=== PATIENT | male | born 1965 ===

== ENCOUNTER → 2019-09-03 | Outpatient (CLI) | payer OTHER ==
[~2019-09-03] MED LIST: ALLO300T PO; CELE100C PO; FEXO60TA25 PO; GABA800T PO; IBUP200C9 PO
--- NOTE | 2019-09-03 08:44 | PAIN ---
DATE OF SERVICE: 09/03/2019 INITIAL CONSULTATION FOR PAIN CLINIC CHIEF COMPLAINT: Low back and left lower extremity pain. HISTORY OF PRESENT ILLNESS: This is a 53-year-old male who presents with history of pain in the low back and the left lower extremity for about 6 months or so. The patient reports it has been bothering him for many years, but much worse over the past 6 months, low back, left lower extremity radiating to posterior gluteus, lateral thigh, lateral anterior thigh, medial thigh and posterior calf. The patient reports it is radiation, comes and goes, but the weakness is noticeable in his left leg, which is much more pronounced with fatigue and walking. The patient reports it is worse with standing and changing positions, awakens him from sleep at least 5 times a night, can affect his bowel or bladder control, but no loss of continence, but does affect his ability to walk. He is limping favoring his left lower extremity. The patient has had physical therapy, exercise, counseling, trigger point dry needling, all which are helpful, but only temporarily. The patient has tried Celebrex as well as Neurontin, Celebrex does decrease the pain by about 20%. The Neurontin has not been effective by his report. The patient did have MRI scan of the lumbar spine showing L4-L5 disk desiccation, severe facet arthropathy with circumferential disk bulge, flattening anterior thecal sac with mild bilateral neural foraminal narrowing. L5-S1 shows similar findings as well. The patient rates his disability rating from 0-10, 10 being the worst, is a 7 with family home responsibilities, 6 with recreation and social activity, occupation and sexual behavior, self-care and life-support activities. PAST MEDICAL HISTORY: Significant for hearing loss bilaterally, history of arthritis. PREVIOUS SURGERY: Includes a right knee scope, anterior cervical diskectomy and fusion in 2004, shoulder surgery bilaterally, tonsillectomy and pinning of his right lower finger from injury. CURRENT MEDICATIONS: Include allopurinol, Neurontin, Celebrex, glucosamine/chondroitin and Anabel. ALLERGIES: The patient has no known drug allergies. FAMILY HISTORY: Significant for no major medical problems or conditions that he lists. SOCIAL HISTORY: The patient does not drink alcohol, does not smoke, does not use any illegal, illicit or recreational drugs. He is single, is currently active and is incarcerated in the custody in [place], [place]. REVIEW OF SYSTEMS: The patient's review of systems is positive for those items mentioned in history of present illness. All systems reviewed and otherwise negative. It is complete, full and well documented on the patient's chart. PHYSICAL EXAMINATION: VITAL SIGNS: The patient's blood pressure 139/95, pulse 55, respirations 16, temperature 97.9 degrees Fahrenheit, height is 67 inches, weight is 203 pounds. GENERAL: The patient is awake, alert, oriented, appropriate, very pleasant demeanor. HEENT: Shows normocephalic, atraumatic. Extraocular movements are intact and symmetrical. Oral cavity shows mucous membranes moist and pink. Dentition is intact. NECK: Shows anterior throat supple without palpable lymphadenopathy noted. Swallow reflex symmetrical. CHEST: Shows normal on inspection. Breath sounds are clear to auscultation bilaterally. HEART: Shows S1, S2 clear. No murmurs auscultated. ABDOMEN: Soft, nontender, nondistended. No palpable organomegaly is noted. No rebound or guarding demonstrated. BACK: Shows spine grossly in the midline, normal-appearing cervical lordotic curvature, thoracic kyphotic curvature and lumbar lordotic curvature. Lumbar paraspinous muscle shows symmetrical on inspection, on palpation shows some moderate tenderness diffusely, but only in the middle and lower distribution of paraspinous muscles, greater on the left than the right, but without asymmetry, no trigger points. No atrophy or hypertrophy. No tenderness over the spinous processes, sacrum or sacroiliac regions. The patient has good rotational motion of lumbar spine, both laterally greater than 10 degrees right and left as well as extension greater than 10 degrees, forward flexion 45 degrees without significant pain reported. EXTREMITIES: Lower extremities show deep tendon reflexes at 2+ patellar, 1+ tendo-calcaneus tendons. Motor exam is strong with 5/5 dorsiflexion, extension, quadriceps and hamstring flexion and symmetrical. Peripheral pulses are 1+ posterior tibia. No peripheral edema is noted. Lower extremities are warm and dry to touch, equal in color and appearance. Straight leg raise noted to be mildly positive on the left at about 40 degrees, decreased with knee flexion, right side is negative. Gaenslen's and Edison's maneuvers are negative bilaterally. The patient is able to stand, stand on his toes without significant difficulty or loss of balance, walks with a slight favoring gait, does appear to favor the left lower extremity moderately with ambulation, is not using any assistive devices to ambulate. SKIN: Shows warm and dry, good turgor. No edema. No sores, rashes or bruising throughout. IMPRESSION: 1. This is a 53-year-old male with long history of low back and left lower extremity pain, worse over the past 6 months in a radiating pattern with radicular quality into the left lower extremity following L4-L5 and L5-S1 dermatomal distribution. 2. History of arthritis. 3. Hearing loss. PLAN: Options were discussed with the patient including conservative medical managements, physical therapies and interventional techniques. He would like to pursue interventional techniques. He has had some physical therapy and dry needling without significant long-term improvement. We discussed a lumbar epidural steroid injection using description as well as anatomical models to describe the procedure. The patient will wait for preauthorization with his insurance provider and have him return for a lumbar epidural steroid injection at that time for his left-sided L4-L5 radiculopathy, translaminar approach at L4-L5 level, lumbar epidural steroid injection on return. GREY FRIEDMAN MD DR: DAWSON/daxa JOB#: [id number] / [id number]
== END | disposition home or self-care (01) ==
LOC: PNCL 07:43 → EEVIPCON 08:00
PROVIDERS: ATTEND Anesthesiology
DX: M54.5 Low back pain (principal); M79.605 Pain in left leg; H91.8X3 Other specified hearing loss, bilateral; M19.90 Unspecified osteoarthritis, unspecified site; Z79.899 Other long term (current) drug therapy
CPT/HCPCS: G0463

== ENCOUNTER → 2019-09-28 | Outpatient (CLI) | payer OTHER ==
[~2019-09-28] MED LIST changes: +IOHEXOL 180 MG/ML 10 ML VIAL. ONE; +methylPREDNISolone ACETATE 40 MG/ML VIAL. ONE; +methylPREDNISolone ACETATE 80 MG/ML VIAL. ONE
--- NOTE | 2019-09-28 08:40 | PAIN ---
DATE OF SERVICE: 09/28/2019 PROGRESS NOTE FOR PAIN CLINIC DIAGNOSIS: Lumbar radiculopathy with lumbar degenerative disk disease. HISTORY OF PRESENT ILLNESS: The patient is a 54-year-old male who returns for followup status post initial evaluation and preauthorization for lumbar epidural steroid injection. The patient obtained this today and would like to proceed. The patient still with pain in the low back, left lower extremity, as was previously, posterior gluteus, posterior thigh, posterolateral thigh, lateral anterior thigh, anterior medial thigh, into the great toe on the left foot. The patient reports it is aching, sharp, dull, shooting, becoming radiating, more constant with activity, better with sitting or lying down, does awaken him from sleep about every 5-6 hours at night. The patient reports no new motor or sensory deficits, rates his pain as a 9 on a scale of 10 at its worst over the past week, 6 on average and a 3 at its least and is a 6 today. The patient reports no new bowel or bladder incontinence, no new findings. PHYSICAL EXAMINATION: VITAL SIGNS: The patient's blood pressure 159/96, pulse 58, respirations are 18, temperature 97.6 degrees Fahrenheit, height is 62 inches, weight is 206 pounds. GENERAL: The patient is awake, alert, oriented, appropriate, very pleasant demeanor. HEENT: Shows normocephalic, atraumatic. Extraocular movements are intact and symmetrical. Oral cavity: Mucous membranes moist and pink. Dentition is intact. NECK: Shows anterior throat supple without palpable lymphadenopathy noted. Swallow reflex symmetrical. CHEST: Shows normal on inspection. Breath sounds clear to auscultation bilaterally. HEART: Shows S1, S2 clear. No murmurs auscultated. ABDOMEN: Soft, nontender, nondistended. No palpable organomegaly is noted. No rebound or guarding demonstrated. BACK: Shows spine grossly in the midline. Normal-appearing thoracic kyphosis and some minor flattening of lumbar lordotic curvature. Lumbar paraspinous muscle shows symmetrical on inspection, on palpation shows some moderate tenderness diffusely in the low lumbar distribution only, but without asymmetry. The patient has full rotational motion of lumbar spine, both laterally as well as extension and flexion without significant difficulty. EXTREMITIES: Lower extremities show deep tendon reflexes 2+ in the patellar, 1+ tendo-calcaneus tendons are equal. Motor exam is strong with 5/5 dorsiflexion, extension, quadriceps and hamstring flexion. Peripheral pulses are 1+ posterior tibia. No peripheral edema is noted bilaterally. Options were discussed with the patient. The patient's old chart was reviewed as his current medication regimen updated. Current review of systems updated today as well. We will proceed with a lumbar epidural steroid injection today with fluoroscopic guidance. Risks were again discussed including, but not limited to bleeding, infection, possibility of epidural hematoma, subsequent neurological compromise, dural puncture, headaches, spinal cord and/or nerve damage, side effects of steroid medication and poor results regarding pain control. The patient understands and wished to proceed. The patient will return to clinic in approximately 2 weeks for followup. He was counseled on return appointment, activity level and side effects to be aware of. DIAGNOSIS: Lumbar radiculopathy with lumbar degenerative disk disease. PROCEDURE: Lumbar epidural steroid injection, translaminar approach at L4-L5 level using C-arm fluoroscopic guidance under sterile prep and drape using local anesthetic. MEDICATION INJECTED: A total of 120 mg Depo-Medrol plus 10 mL of preservative-free normal saline and 2 mL of contrast. CONDITION AT DISCHARGE: Stable. The patient tolerated the procedure well, had no complications. GREY FRIEDMAN MD DR: DAWSON/daxa JOB#: [id number] / [id number]
== END ==
LOC: PNCL 07:37 → EEVIPCON 08:00
PROVIDERS: ATTEND Anesthesiology
DX: M51.16 Intervertebral disc disorders with radiculopathy, lumbar region (principal)
CPT/HCPCS: 62323; J1030; J1040; Q9965

== ENCOUNTER → 2019-10-25 | Outpatient (CLI) | payer OTHER ==
--- NOTE | 2019-10-25 08:39 | PAIN ---
DATE OF SERVICE: 10/25/2019 PROGRESS NOTE FOR PAIN CLINIC DIAGNOSIS: Lumbar radiculopathy with lumbar degenerative disk disease. HISTORY OF PRESENT ILLNESS: The patient is a 54-year-old male who returns for followup status post lumbar epidural steroid injection x 1. The patient reports about 95% improvement for the first 2-1/2 weeks or so. Pain is returning now in the low back and left lower extremity, mostly in the posterior gluteus, posterolateral thigh, lateral anterior thigh, anterior medial thigh, medial and posterior calf on the left side only. The patient reports it is worse with walking, standing, change in positions. Initially, he was increasing his activity with distance walking, doing work activities, all with greater ease and comfort, sleeping better at night. The patient reports it beginning in the weekend again over the past few days when he lies on his left side. The patient reports otherwise doing fairly well. Describes the pain as aching, sharp, dull, shooting, stabbing, radiating to the left leg as described. The patient reports it is a 7 on a scale of 10 at its worst over the past week, 5 on average, 2 at its least, and is a 5 today. The patient reports no new motor or sensory deficits, no new bowel or bladder incontinence or other complaints. PHYSICAL EXAMINATION: VITAL SIGNS: The patient's blood pressure is 130/103, pulse is 68, respirations 18, temperature is 97.7 degrees Fahrenheit. Height is 67 inches, weight is 200 pounds. GENERAL: The patient is awake, alert, oriented, appropriate, very pleasant demeanor. HEENT: Shows normocephalic, atraumatic. Extraocular movements are intact and symmetrical. Oral cavity: Mucous membranes moist and pink. Dentition is intact. NECK: Shows anterior throat supple without palpable lymphadenopathy noted. Swallow reflex symmetrical. CHEST: Shows normal on inspection. Breath sounds are clear to auscultation bilaterally. HEART: Shows S1, S2 clear. No murmurs auscultated. ABDOMEN: Soft, nontender, nondistended. No palpable organomegaly is noted. No rebound or guarding demonstrated. BACK: Shows spine grossly in the midline. Normal-appearing thoracic kyphosis, some minor flattening of lumbar lordotic curvature. Lumbar paraspinous muscle shows symmetrical on inspection, with palpation shows some mild tenderness, but only mildly without significant radiation. No atrophy, hypertrophy. No asymmetry. EXTREMITIES: Lower extremities are warm and dry to touch, equal in color and appearance. The patient has good rotational motion of lumbar spine, both laterally as well as extension and flexion without significant difficulty. The patient's lower extremities show deep tendon reflexes 2+ in the patellar, 1+ tendo-calcaneus tendons. Motor exam is strong with 5/5 dorsiflexion, extension, quadriceps and hamstring flexion symmetrical. Peripheral pulses are 1+ posterior tibia. No peripheral edema is noted bilaterally. Options were discussed with the patient. The patient's old chart was reviewed as his current medication regimen updated. Current review of systems updated today as well. We will proceed with a second in a series of lumbar epidural steroid injections today with fluoroscopic guidance. Risks were again discussed including, but not limited to bleeding, infection, possibility of epidural hematoma, subsequent neurological compromise, dural puncture, headaches, spinal cord and/or nerve damage, side effects of steroid medication, and poor results regarding pain control. The patient understands and wished to proceed. The patient will return to clinic in approximately 2 weeks for followup. He was counseled on return appointment, activity level, and side effects to be aware of. DIAGNOSIS: Lumbar radiculopathy with lumbar degenerative disk disease. PROCEDURE: Lumbar epidural steroid injection, translaminar approach at L4-L5 level using C-arm fluoroscopic guidance under sterile prep and drape using local anesthetic. MEDICATION INJECTED: A total of 120 mg Depo-Medrol plus 10 mL of preservative-free normal saline and 2 mL of contrast. CONDITION AT DISCHARGE: Stable. The patient tolerated procedure well, had no complications. GREY FRIEDMAN MD DR: DAWSON/daxa JOB#: [id number] / [id number]
== END ==
LOC: PNCL 07:40 → EEVIPCON 08:00
PROVIDERS: ATTEND Anesthesiology
DX: M51.16 Intervertebral disc disorders with radiculopathy, lumbar region (principal)
CPT/HCPCS: 62323; J1030; J1040; Q9965

== ENCOUNTER → 2020-04-06 | Outpatient (CLI) | payer OTHER ==
[~2020-04-06] MED LIST changes: -IOHEXOL 180 MG/ML 10 ML VIAL. ONE; -methylPREDNISolone ACETATE 40 MG/ML VIAL. ONE; -methylPREDNISolone ACETATE 80 MG/ML VIAL. ONE
--- NOTE | 2020-04-06 09:46 | PAIN ---
DATE OF SERVICE: 04/06/2020 PROGRESS NOTE FOR PAIN CLINIC DIAGNOSIS: Lumbar radiculopathy with lumbar degenerative disk disease. HISTORY OF PRESENT ILLNESS: The patient is a 54-year-old male who returns for followup status post lumbar epidural steroid injection x 2, but most recently seen 10/25/2019, patient did very well with about 90% improvement in the low back and left lower extremity. The patient reports the pain is returning now in the low back and left leg, posterior gluteus, posterior thigh, posterior calf to the level of the ankle, some on the lateral thigh and ankle as well, worse with walking, standing, changing positions, better with sitting or lying down, awakens him from sleep at least once or twice at night. The patient reports the pain is an 8 on a scale of 10 at its worst over the past week, 5 on average, 4 at its least and is a 5 today. The patient reports it is aching, shooting, tingling and stabbing, radiating, sometimes constant in the left leg. The patient reports no new motor or sensory deficits, no new bowel or bladder incontinence or other complaints. PHYSICAL EXAMINATION: VITAL SIGNS: The patient's blood pressure is 156/96, pulse is 75, respirations are 18, temperature is 98.6 degrees Fahrenheit, height is 67 inches, weight is 196 pounds. GENERAL: The patient is awake, alert, oriented, appropriate, very pleasant demeanor. HEENT: Shows normocephalic, atraumatic. Extraocular movements are intact and symmetrical. Oral cavity: Mucous membranes moist and pink. Dentition is intact. NECK: Shows anterior throat supple without palpable lymphadenopathy noted. Swallow reflex symmetrical. CHEST: Shows normal on inspection. Breath sounds are clear bilaterally. HEART: Shows S1, S2 clear. No murmurs auscultated. ABDOMEN: Soft, nontender, nondistended. No palpable organomegaly is noted. No rebound or guarding demonstrated. BACK: Shows spine grossly in the midline. Normal appearing thoracic kyphosis and some minor flattening of lumbar lordotic curvature. Lumbar paraspinous muscle shows symmetrical on inspection, with palpation shows some mild tenderness diffusely in the middle and lower distribution of paraspinous muscles bilaterally, but symmetrical without evidence of atrophy, hypertrophy, no trigger points, no radiation of pain. The patient has good rotational motion of lumbar spine laterally as well as extension and flexion without difficulty. EXTREMITIES: Lower extremities show deep tendon reflexes 2+ in the patellar, 1+ tendo-calcaneus tendons and equal. Motor exam is strong with 5/5 dorsiflexion, extension, quadriceps and hamstring flexion symmetrical. Peripheral pulses are 1+ posterior tibia. No peripheral edema is noted bilaterally. Options were discussed with the patient. The patient's old chart was reviewed as his current medication regimen updated. Current review of systems updated today as well and we will proceed with a preauthorization for lumbar epidural steroid injection. He has done very well with these in the past with returning radicular pain in the left at L4-L5 dermatomal distribution. The patient will wait for preauthorization. In the meantime, we will maintain with stretching and strengthening exercises, heat application as possible and walking as tolerated. The patient will return to the clinic in approximately 2 weeks. We will plan on lumbar epidural steroid injection at that time. GREY FRIEDMAN MD DR: DAWSON/daxa JOB#: [id number] / [id number]
== END ==
LOC: PNCL 07:47
PROVIDERS: ATTEND Anesthesiology
DX: M51.16 Intervertebral disc disorders with radiculopathy, lumbar region (principal)
CPT/HCPCS: 99212; G0463

== ENCOUNTER → 2020-06-19 | Outpatient (CLI) | payer OTHER ==
[~2020-06-19] MED LIST changes: +IOHEXOL 180 MG/ML 10 ML VIAL. ONE; +methylPREDNISolone ACETATE 40 MG/ML VIAL. ONE; +methylPREDNISolone ACETATE 80 MG/ML VIAL. ONE
--- NOTE | 2020-06-19 08:34 | PDOC ---
Progress Note - Pain Clinic Date of Service: DOS: DATE: 06/19/20 TIME: 08:30 Diagnosis: Dx: Lumbar radiculopathy with lumbar degenerative disc disease History or Present Illness: HPI: 54-year-old male returns follow-up status post previous lumbar epidural steroid injection x2 last injection was October 25, 2019 patient had preauthorization and obtain that today would like to return with additional lumbar epidural steroid traction patient complains of pain low back specially the left lower extremity posterior gluteus posterior lateral thigh lateral anterior thigh medial thigh into the calf on the left side also some mild tingling and burning and itching sensations in the right leg in the same distribution. Patient reports it is worse with walking standing changing positions better with sitting or laying down wakes him sleep about once every 5 hours patient reports initially was doing much better near 100% improvement after his last injection which was in October but now the pain is returning in the low back left lower extremity greater than right described as burning and stabbing itching in the right foot aching and shooting in the back shooting in the lower extremity rating the lower extremity patient rates his pain is a 9 on scale 10 is worse over the past week 6 on average 5 its least and is a 5 today. Patient reports no new motor or sensory deficits no new bowel or bladder incontinence or other complaints. Physical Exam: VS: Blood pressure is 159/103 pulse 56 respirations are 18 temperature is 98.1 F height is 67 inches weight is 199 pounds PE: PHYSICAL EXAMINATION: GENERAL: The patient is awake, alert, oriented, appropriate, very pleasant demeanor HEENT: Shows normocephalic, atraumatic. Extraocular movements are intact and symmetrical. Oral cavity: Mucous membranes moist and pink. NECK: Shows anterior throat supple without palpable lymphadenopathy noted. Swallow reflex symmetrical. CHEST: Shows normal on inspection. Breath sounds are clear bilaterally, no ral es rhonchi or wheezes auscultated. HEART: Shows S1, S2 clear. No murmurs auscultated. ABDOMEN: Soft, nontender, nondistended, obese. No palpable organomegaly is noted. No rebound or guarding demonstrated. BACK: Shows spine grossly in the midline. Normal-appearing cervical lordotic curvature. There is slightly increased thoracic kyphosis, some minor flattening of the lumbar lordotic curvature. Lumbar paraspinous muscles show symmetrical on inspection, on palpation shows some moderate tenderness diffusely throughout the upper, middle and lower distribution of the paraspinous muscles bilaterally, but without specific trigger points, without radiation of pain. The patient has good rotational motion of the lumbar spine, both laterally as well as extension and flexion without significant difficulty. No tenderness over the spinous processes, sacrum or sacroiliac regions. EXTREMITIES: Lower extremities show deep tendon reflexes 2+ in the patellar and tendo calcaneus tendons. Motor exam is 5 on a scale of 5 with right dorsiflexion, extension, quadriceps and hamstring flexion and 5/5 on the left. Peripheral pulses are 1+ posterior tibial. No peripheral edema is noted bilaterally. Lower extremities are warm and dry to touch, equal in color and appearance. Straight leg raise noted to be negative on the right, left side is positive at approximately 40 degrees decreased with knee flexion. Gaenslen's and Edison's maneuvers are negative bilaterally as well. The patient is able to stand, stand on his toes walks with a slight favoring gait does appear to favor the left lower extremity but without any assistive devices such as canes or walkers. SKIN: Shows warm and dry, good turgor. No edema. No sores, rashes or bruising throughout. Procedure: Procedure: Options were discussed with the patient. Patient chart was reviewed his his current medication regimen updated current review of systems updated today as well. We will proceed with a lumbar epidural steroid injection as the first in the series today with fluoroscopic guidance. Risks were discussed including but not limited to: Bleeding, infection, possibility of epidural hematoma and subsequent neurological compromise, dural puncture, headaches, spinal cord and/or nerve damage, side effects of steroid medication, and poor results regarding pain control. Patient understands wished to proceed. Patient return to clinic in possibly 2 weeks for follow-up was counseled as to return appointment activity level and side effects to be aware of. Medication Injected: Med Injected: Procedure is lumbar epidural steroid injection under local anesthetic using sterile prep and drape at the L4-5 level using C-arm fluoroscopic guidance in both AP and lateral views medications injected is 120 mg Depo-Medrol + 10 mL preservative-free normal saline and 2 mL contrast- condition at discharge is s table patient tolerated procedure well had no complications. Condition at Discharge: Condition at Discharge: Condition at discharge is stable patient tolerated the procedure well had no complications. GREY FRIEDMAN MD Jun 19, 2020 08:34
== END | disposition home or self-care (01) ==
LOC: PNCL 07:26 → EEVIPCON 08:00
PROVIDERS: ATTEND Anesthesiology
DX: M51.16 Intervertebral disc disorders with radiculopathy, lumbar region (principal); Z79.899 Other long term (current) drug therapy
CPT/HCPCS: 62323; J1030; J1040; Q9965